=== PATIENT | male | born 1975 | race Asian ===

== ENCOUNTER 2018-11-16 22:40 | Emergency (ER) | payer SELFPAY ==
[~2018-11-16] VITALS: Ht 170.2 cm; Wt 71.6 kg
[~2018-11-16 22:40] MED LIST: IBUP200C11 PO
[2018-11-16 22:46] VITALS: Ht 170.2 cm; Wt 71.6 kg
[2018-11-16] MEDS ORDERED: morphine 4 MG/ML VIAL IV STA (23:08)
[2018-11-16] MEDS ORDERED: ONDANSETRON 4 MG INJ IV STA (23:08)
[2018-11-16] MEDS ORDERED: SOD CHLORIDE 0.9% 1,000 ML IV ONE (23:30)
[2018-11-16] MEDS ORDERED: CEFAZOLIN 1 GM/50 ML (PMX) 50 ML IVPB SCH (23:30)
[2018-11-17] MEDS ORDERED: morphine 4 MG/ML VIAL IV STA (02:06)
[2018-11-17] MEDS ORDERED: HYDROmorphONE 0.5 MG/0.5 ML SYG IV STA (02:06)
[2018-11-17] MEDS ORDERED: HYDROmorphONE 0.5 MG/0.5 ML SYG IV ONE (04:12)
[2018-11-17 05:18] VITALS: BP 130/81; PULSE 85; RESP 19
== END 2018-11-17 05:19 | disposition short-term general hospital (02) ==
LOC: E/R 22:40
DX: S02.412A LeFort II fracture, initial encounter for closed fracture (principal); S01.81XA Laceration without foreign body of other part of head, initial encounter; V00.831A Fall from motorized mobility scooter, initial encounter
CPT/HCPCS: 70450; 70486; 72125; 96374; 96375; 96376; 99285; J0690; J1170; J7030